=== PATIENT | female | born 1965 | race Caucasian/White ===

== ENCOUNTER → 2016-10-28 | Day surgery (SDC) | payer OTHER ==
[~2016-10-28] VITALS: Ht 162.6 cm; Wt 53.1 kg
[~2016-10-28] MED LIST: ASPIRIN EC81 M1; LISINOPRIL10 M1
--- NOTE | 2016-11-01 08:32 | Operative Report ---
Operative/Inv Procedure Report Surgery Date: 10/28/16 Name of Procedure: Open mesh repair of ventral hernia Pre-Operative Diagnosis: Lateral ventral reducible hernia Post-Operative Diagnosis: Same Estimated Blood Loss: scant Surgeon/Educational Manager: MALIKA GUZMAN,Fay Rossi Anesthesia: general endotracheal tube Operative/Procedure Note Note: Patient was placed on the OR table in the supine position. After successful induction of general anesthesia, another timeout was done, antibiotics given, the abdomen was clipped prepped and draped in the usual sterile fashion. An incision was planned overlying the hernia, she had a very lax lower abdominal wall especially supine relaxed anesthetized it was actually not so easy to find the defect which was so obvious in the holding area. My sense was that it was lateral to the rectus but above the inguinal ligament. This spot was infiltrated with local anesthetic and then a horizontal 5 cm incision was made with a 15 blade. This was deepened with cautery and the herniated fat and overlying sac were dissected circumferentially off the fascia, defining the true edges of the defect. This was located lateral to the rectus starting at the semilunar line but it also included 3 oblique a neurosis and musculature in my opinion it was not related to the hysterectomy incisions. It took some time to define this defect, we entered and defined the space of Bogros, preperitoneal inferiorly you could see the round ligament structures was no inguinal hernia superiorly we stayed underneath the rectus muscles and oblique muscles keeping the peritoneal layer intact to cover the bowel and we got a ventralX, 8 centimeter mesh, took some time to truly center it tacking it down peripherally both with 2-0 Prolene and 2-0 Vicryl sutures and then closed with a aponeurotic muscular layers over the mesh paying care not to shifted suturing back together the semilunar line and the external oblique a neurosis this was some of somewhat of a stellate defect, especially laterally and superiorly. The fascia laterally was very attenuated and you had to imbricate it on top of the repair. In certain areas the fascia was reapproximated with 2-0 Prolene suture and 2-0 Maxon suture. The subcutaneous layer and Seh's fascia were reapproximated to cover. The incision was irrigated and then the skin was reapproximated with a running subcuticular 4-0 Biosyn, followed by Mastisol, Steri-Strips Telfa Tegaderm. EBL minimal lap and sponge counts correct wound expectancy clean IV fluids crystalloid complications none patient tolerated the procedure well was awakened extubated returned to the recovery room in satisfactory condition.
== END ==
LOC: STS 01:29
DX: K43.9 Ventral hernia without obstruction or gangrene (principal); I25.10 Atherosclerotic heart disease of native coronary artery without angina pectoris; F17.200 Nicotine dependence, unspecified, uncomplicated; I25.2 Old myocardial infarction; I10 Essential (primary) hypertension; Z79.82 Long term (current) use of aspirin
CPT/HCPCS: C1781; J0131; J1100; J1885; J2250; J2405